=== PATIENT | female | born 2000 | race Caucasian/White ===

== ENCOUNTER 2021-02-21 14:36 | Emergency (ER) | payer OTHER, SELFPAY ==
[2021-02-21 14:58] VITALS: BP 138/65; PULSE 100; RESP 18; TEMP 36.9; O2SAT 98; BMI 34.3
--- NOTE | 2021-02-21 18:06 | ED_ITS ---
HPI - URI/Sore Throat General Chief Complaint: General Medical Stated Complaint: +COVID,SORETHROAT,GENERAL WEAKNESS Time Seen by Provider: 02/21/21 18:02 Source: patient Mode of arrival: ambulatory Limitations: no limitations History of Present Illness MD elicited complaint: cough and sore throat Onset (ago): day(s) (2) Consistency: constant and progressively worsening Severity: moderate Description of mucous: clear and watery Able to tolerate fluids by mouth: Yes Exacerbating factors: swallowing Relieving factors: nothing Context: other (Patient tested positive for COVID 2 days ago) Associated symptoms: chills, myalgias, diaphoresis, headache, rhinorrhea, nasal congestion, sore throat and cough Treatments prior to arrival: none Related Data Previous Rx's Medication Instructions Recorded azithromycin 250 mg tablet See Rx Instructions .ROUTE 02/21/21 .COMPLEX #6 tab codeine 10 mg-guaifenesin 100 mg/5 5 ml PO Q6H PRN #120 ml 02/21/21 mL oral liquid (Guaifenesin AC) cyclobenzaprine 10 mg tablet 10 mg PO Q8H PRN #14 tab 02/21/21 Allergies Allergy/AdvReac Type Severity Reaction Status Date / Time amoxicillin [AMOXICILLIN] Allergy Unknown RASH Unverified 11/24/19 16:59 apple [APPLE] Allergy Unknown THROAT Unverified 11/24/19 16:59 ITCHY Review of Systems Review of Systems: Constitutional : No Weight loss, No Fever, + Chills, No Night Sweats, + Fatigue, + Malaise ENT/Mouth : No Hearing loss, No Ear Pain, + Nasal Congestion, No Sinus Pain, No Hoarseness, + sore throat, + Rhinorrhea, No Swallowing Difficulty Eyes: No Eye Pain, No Swelling, No Redness, No Foreign Body, No Discharge, No Vision Changes Cardiovascular : No Chest Pain, No SOB, No Dyspnea on Exertion, No Orthopnea, No Edema, No Palpitations Respiratory : + Cough, + Sputum, No Wheezing, No Smoke Exposure, No Dyspnea Gastrointestinal : No Nausea, No Vomiting, No Diarrhea, No Constipation, No abdominal Pain, No Hematochezia, No Melena Genitourinary : no irregular bleeding, No Dysuria, No Urinary Frequency, No He maturia, No Urinary Incontinence, No Urgency, No Flank Pain, No Urinary Flow Changes, No Hesitancy Musculoskeletal : No joint pain, + Myalgias, No Joint Swelling Skin : No Skin Lesions, No rash Neuro : No Weakness, No Numbness, No Paresthesias, No Loss of Consciousness, No Dizziness, No Headache Psych : No Anxiety/Panic, No Depression, No SI/HI/AH/VH, No Social Issues, Heme/Lymph: No Bruising, No Bleeding,No Lymphadenopathy Endocrine : No Polyuria, No Polydipsia, No Temperature Intolerance Yes all other systems are reviewed and are negative [facility] Past Medical History Attestation statement: The following information was validated with the patient. Medical History No known health problems Social History Social History Patient : No Physical Exam Vital Signs: Vital Signs: Last Vital Signs Temp 98.5 F 02/21/21 14:58 Pulse 100 02/21/21 14:58 Resp 18 02/21/21 14:58 BP 138/65 02/21/21 14:58 Pulse Ox 98 02/21/21 14:58 BMI result Body Mass Index 34.3 vital signs have been reviewed as normal and appeared to be correct. Blood pressure normal. Heart rate normal. Respiration rate normal. Temperature normal. Oxygen saturation normal. Appearance: Alert. Oriented X3. No acute distress. Head: Normal external exam. Normocephalic. Atraumatic. Eyes: PERRLA. EOMI. Conjunctiva and sclera normal. Eyelids normal. ENT: EAC normal. TM's Normal. Posterior pharynx mildly erythematous and tonsils and large although equal bilaterally and exudate noted. Uvula midline. Moist mucous membranes. No trismus noted. No drooling noted. No muffled voice noted. Neck: Normal inspection. Neck supple. FROM. No adenopathy. Thyroid Normal. No meningeal signs. No neck mass noted. CVS: Normal heart rate and rhythm. Heart sound normal. Pulses normal throughout. No murmurs/rales/gallops. Respiratory: No respiratory distress. Painless inspiration. Breath sounds normal. No wheezes/rales/rhonchi noted. Chest nontender. No accessory muscle usage noted or decreased air movement noted. Abdomen: Soft and nontender. Bowel sounds normal in all 4 quadrants. No distention noted. No organomegaly noted. No visible injury noted. Back: Full range of motion noted. No rashes/lesion/induration/fluctuance or signs of infection noted. Skin: Skin warm and dry. Normal skin color. Normal skin turgor. No rashes/lesions/lacerations noted. Extremities: No lower extremity edema. Extremities exhibit normal range of motion. Extremities nontender. Neuro: Oriented X 3. No motor deficit. No sensory deficit. Reflexes normal. Normal steady gait. No focal neuro deficits noted. Vascular: + radial pulses Normal cap refill. No cyanosis noted to upper extremity nails Course Course Course Narrative: 20-year-old female presenting to the ED with worsening sore throat and cough for the past 2 days after she tested positive for COVID at an outside location. On exam it appears that she has bacterial pharyngitis. I obtain swab although will treat and DC home with instructions to continue to self isolate and to return if any new or worsening symptoms. Patient understands agrees with this plan. MDM - URI/Sore Throat Medical Records Attestation: I reviewed the patient's medical records. Lab Data Attestation: I reviewed the patient's lab results. Discharge Plan Discharge Clinical Impression: Pharyngitis, COVID-19 Patient Disposition: Home, Self-Care Instructions: Pharyngitis (ED), COVID-19 (Coronavirus Disease 2019) (ED) Prescriptions: New cyclobenzaprine 10 mg tablet 10 mg PO Q8H PRN (Reason: Muscle spasm) Qty: 14 RF: 0 codeine-guaifenesin [Guaifenesin AC] 10-100 mg/5 mL liquid 5 ml PO Q6H PRN (Reason: cold symptoms) Qty: 120 RF: 0 azithromycin 250 mg tablet See Rx Instructions .ROUTE .COMPLEX Qty: 6 RF: 0 Referrals: [facility] [Primary Care Provider] - 2 days Print Language: Malawian
[2021-02-21 18:45] LABS: Strep A Nucleic Acid Positive (Negative)
== END 2021-02-21 18:31 | disposition home or self-care (01) ==
LOC: HO.ED 18:24
PROVIDERS: Physician Assistant Medical; Emergency Provider Emergency Medicine
DX: U07.1 COVID-19 (principal); J02.0 Streptococcal pharyngitis
CPT/HCPCS: 36415; 87651; 99283

== ENCOUNTER 2021-02-28 10:38 | Outpatient (REF) | payer OTHER, SELFPAY ==
[2021-02-28 12:49] LABS: COVID-19 Test Positive (Negative)
== END 2021-02-28 10:39 | disposition home or self-care (01) ==
LOC: HO.LAB 10:38
PROVIDERS: Visit Provider Internal Medicine
DX: Z20.822 Contact with and (suspected) exposure to COVID-19 (principal)
CPT/HCPCS: 36415; 87635; C9803

== ENCOUNTER 2021-07-03 15:20 | Emergency (ER) | payer OTHER, SELFPAY ==
[2021-07-03 15:47] VITALS: BP 126/83; PULSE 77; RESP 18; TEMP 36.3; O2SAT 98; BMI 35.2
[2021-07-03 17:50] LABS: MANUAL DIFF FLAG NO
[2021-07-03 17:54] LABS: Basophils Percent Auto 0.2 % (0-2); Eosinophils Percent Auto 0.1 % (0-4); Hematocrit 42.5 % (37.0-47.0); Hemoglobin 13.6 g/dl (12.0-16.0); Imm Gran Abs Auto 0.05 X10*3/uL (0.00-0.03); Imm Gran Pct Auto 0.4 % (0.0-0.4); Lymphocytes Absolute Auto 1.5 X10*3/uL (1.2-4.9); Mean Corpuscular Hemoglobin 25.3 pg (27.0-33.0); Mean Platelet Volume 9.2 fL (9.4-12.3); Monocytes Absolute Auto 0.4 X10*3/uL (0.1-1.2); Monocytes Percent Auto 3.5 % (2-11); Neutrophils Absolute Auto 10.4 x10*3/uL (2.0-8.3); Neutrophils Percent Auto 83.8 % (45-73); Platelet Count 370 X10*3/uL (160-400); Red Blood Count 5.38 X10*6/uL (4.20-5.50); Red Cell Distribution Width 13.2 % (11.0-16.0); White Blood Count 12.4 X10*3/uL (4.8-10.8)
[2021-07-03 18:09] LABS: Anion Gap 13 (12-20); Blood Urea Nitrogen 10 mg/dL (9-16); Calcium 10.2 mg/dL (8.4-10.2); Carbon Dioxide 27 mmol/L (22-29); Chloride 102 mmol/L (96-108); Creatinine Clr Calc Pharmacy 122.7; Estimated Glomerular Filt Rate > 60; Glucose Random 95 mg/dL (60-115); Potassium 4.5 mmol/L (3.3-5.1); Sodium 137 mmol/L (135-145)
== END 2021-07-03 22:10 | disposition left against medical advice (07) ==
LOC: HO.ED 22:07
PROVIDERS: Emergency Provider Emergency Medicine
DX: R10.9 Unspecified abdominal pain (principal)
CPT/HCPCS: 36415; 80048; 85025; 99282; 99283

== ENCOUNTER 2021-07-04 10:46 | Emergency (ER) | payer OTHER, SELFPAY ==
--- NOTE | ~2021-07-04 | CT_ITS ---
EXAMINATION: CT ABDOMEN AND PELVIS WITH CONTRAST CLINICAL INFORMATION: Right lower quadrant and left lower quadrant pain. COMPARISON: None TECHNIQUE: Multidetector volumetric images were obtained from the superior aspect of the liver through the pubic symphysis following administration 85 mL of Omnipaque 350 intravenous contrast. Sagittal and coronal reformatted images were obtained on the technologist's workstation. Oral contrast: No This CT examination was performed using dose optimization techniques as appropriate, variously including the following: *Automated exposure control *Adjustment of mA and/or kV according to patient size (this includes techniques or standardized protocols for targeted exams where dose is matched to indication/reason for exam; i.e. extremities or head) *Use of iterative reconstruction technique DLP: 701 mGy-cm FINDINGS: LUNG BASES: The visualized lung bases are unremarkable. LIVER, GALLBLADDER, AND BILIARY TREE: The liver is normal in size, shape, and attenuation. No focal hepatic lesion or biliary ductal dilatation is present. The gallbladder is unremarkable with no evidence of radiopaque gallstones, gallbladder wall thickening, or obvious pericholecystic inflammatory changes. PANCREAS: Unremarkable. SPLEEN: Unremarkable. ADRENAL GLANDS: Unremarkable. KIDNEYS AND URETERS: The kidneys are normal in size, shape, and attenuation. No hydronephrosis, hydroureter, or calculi seen. No perinephric stranding. BLADDER: Unremarkable. GASTROINTESTINAL TRACT: Normal appendix. No intestinal dilatation or mural thickening. No free intraperitoneal fluid or gas collections. Normal sigmoid mesentery and small bowel mesentery. Normal stomach. ABDOMINAL WALL: No significant hernia is appreciated. LYMPH NODES: Normal. VASCULAR: Unremarkable. PELVIC VISCERA: Normal appearance of the uterus. No suspicious adnexal lesions noted. Possible 1.2 cm rounded low-density cyst within the left ovary which is physiologic in appearance. OSSEOUS STRUCTURES: Incidental bone island within the right sacral alum measuring 5 mm in diameter. Mild multilevel Schmorl's node deformities within the visualized thoracic and lumbar spine. CT/CT abdomen pelvis w con IMPRESSION: IV contrast-enhanced CT of the abdomen and pelvis: *No acute abnormalities. *Normal appendix. No free intraperitoneal fluid or gas collections. No urolithiasis identified. Fleischner guidelines were followed.
[2021-07-04 10:50] VITALS: BP 145/88; PULSE 77; RESP 18; TEMP 37.1; O2SAT 97; BMI 34.7
[2021-07-04 20:58] LABS: Appearance Urine HAZY; Color Urine YELLOW; Glucose Urine UA NEG (NEG); Leukocyte Esterase Urine 2+ (NEG); Nitrite Urine NEG (NEG); Specific Gravity - Urine >= 1.030 (1.005-1.025); UACC Culture Trigger YES; Urine Blood TRACE (NEG); Urine Ketones >=80 MG/DL (NEG); Urine Protein TRACE MG/DL (NEG-TRACE)
[2021-07-04 21:02] LABS: UPreg QC Valid YES; Urine Pregnancy NEGATIVE (NEGATIVE)
[2021-07-04 21:12] LABS: Bacteria Urine 4+ /LPF; Squamous Epithelial Cell Urine 2+ /LPF
[2021-07-04 21:13] LABS: Mucus Urine 3+ /LPF
--- NOTE | 2021-07-04 21:49 | ED.ABDPAIN ---
HPI - Abdominal Pain General Chief Complaint: Abdominal Pain <LAUREN Smith - Last Filed: 07/04/21 23:28> Stated Complaint: vomiting abd pain <LAUREN Smith - Last Filed: 07/04/21 23:28> Time Seen by Provider: 07/04/21 21:02 <LAUREN Smith - Last Filed: 07/04/21 23:28> Source: patient <LAUREN Smith - Last Filed: 07/04/21 23:28> Mode of arrival: ambulatory <LAUREN Smith Last Filed: 07/04/21 23:28> Limitations: no limitations <LAUREN Smith Last Filed: 07/04/21 23:28> History of Present Illness HPI narrative: This is a 21-year-old female with no significant medical history presenting to the emergency department with complaints of nausea, vomiting and abdominal pain x3 days. Patient tells me that she has not been able to keep anything down because she is too nauseous and vomiting, unable to quantify how many times she has vomited. She tells me that she is vomiting bile at this point. She also reports abdominal pain worse in the left and right lower quadrant. Patient tells me that the pain is intermittent in nature, crampy, aching, nonradiating. She also tells me that she has been constipated and has not had a bowel movement for 3 days. She denies any sick contacts. She denies fevers, chills, chest pain, shortness of breath, changes in urination, chances of . <LAUREN Smith - Last Filed: 07/04/21 23:28> MD elicited complaint: abdominal pain <LAUREN Smith Last Filed: 07/04/21 23:28> Pertinent past history: none <LAUREN Smith Last Filed: 07/04/21 23:28> Onset (ago): day(s) (3) <LAUREN Smith Last Filed: 07/04/21 23:28> Pain Consistency: constant <LAUREN Smith Last Filed: 07/04/21 23:28> Location: RLQ and LLQ <LAUREN Smith - Last Filed: 07/04/21 23:28> Severity: moderate <LAUREN Smith - Last Filed: 07/04/21 23:28> Quality: cramping and aching <LAUREN Smith - Last Filed: 07/04/21 23:28> Radiation: none <LAUREN Smith - Last Filed: 07/04/21 23:28> Migration to: no migration <LAUREN Smith - Last Filed: 07/04/21 23:28> Exacerbating factors: eating <LAUREN Smith - Last Filed: 07/04/21 23:28> Relieving factors: nothing <LAUREN Smith - Last Filed: 07/04/21 23:28> Associated symptoms: nausea, vomiting and constipation (X3 days. ) <LAUREN Smith - Last Filed: 07/04/21 23:28> Related Data Home Medications: Previous Rx's Medication Instructions Recorded azithromycin 250 mg tablet See Rx Instructions .ROUTE 02/21/21 .COMPLEX #6 tab codeine 10 mg-guaifenesin 100 mg/5 5 ml PO Q6H PRN #120 ml 02/21/21 mL oral liquid (Guaifenesin AC) cyclobenzaprine 10 mg tablet 10 mg PO Q8H PRN #14 tab 02/21/21 cefuroxime axetil 250 mg tablet 250 mg PO BID 7 Days #14 tab 07/04/21 ondansetron 4 mg disintegrating 4 mg PO ONCE PRN #10 tab 07/04/21 tablet <LAUREN Smith Last Filed: 07/04/21 23:28> Allergies/Adverse Reactions: Allergies Allergy/AdvReac Type Severity Reaction Status Date / Time amoxicillin [AMOXICILLIN] Allergy Unknown RASH Unverified 11/24/19 16:59 apple [APPLE] Allergy Unknown THROAT Unverified 11/24/19 16:59 ITCHY <LAUREN Smith Last Filed: 07/04/21 23:28> Review of Systems Review of Systems Constitutional : No Weight loss, No Fever, No Chills, No Fatigue, No Malaise ENT/Mouth : No sore throat, No Rhinorrhea Eyes: No Eye Pain, No Swelling, No Redness Cardiovascular : No Chest Pain, No SOB, No Dyspnea on Exertion, No Orthopnea, No Edema, No Palpitations Respiratory : No Cough, No Sputum, No Wheezing Gastrointestinal : + Nausea, + Vomiting, No Diarrhea, No Constipation, + abdominal Pain, No Hematochezia, No Melena Genitourinary : No Dysuria, No Urinary Frequency, No Hematuria, Musculoskeletal : No joint pain, No Myalgias, No Joint Swelling Skin : No Skin Lesions, No rash Neuro : No Weakness, No Numbness, No Dizziness, No Headache Psych : No Anxiety/Panic, No Depression All other systems reviewed and are negative <LAUREN Smith - Last Filed: 07/04/21 23:28> Yes all other systems are reviewed and are negative <LAUREN Smith - Last Filed: 07/04/21 23:28> [facility] Past Medical History Attestation statement: The following information was validated with the patient. <LAUREN Smith - Last Filed: 07/04/21 23:28> Source: old records reviewed and nursing notes reviewed <LAUREN Smith - Last Filed: 07/04/21 23:28> Medical History: Medical History No known health problems <LAUREN Smith - Last Filed: 07/04/21 23:28> Social History Social History: Social History Advance Directives: No Advance Directives Information Provided: No Patient : No <LAUREN Smith Last Filed: 07/04/21 23:28> Physical Exam ED Vital Signs: Vital Signs - 24 hr 07/04/21 10:50 07/05/21 00:06 Temperature 98.8 F 98.0 F Pulse Rate 77 97 Respiratory Rate 18 16 Blood Pressure 145/88 H 141/77 H Pulse Oximetry 97 97 BMI result Body Mass Index 34.7 vital signs stable <LAUREN Smith - Last Filed: 07/04/21 23:28> Vital Signs - 24 hr 07/04/21 10:50 07/05/21 00:06 Temperature 98.8 F 98.0 F Pulse Rate 77 97 Respiratory Rate 18 16 Blood Pressure 145/88 H 141/77 H Pulse Oximetry 97 97 BMI result Body Mass Index 34.7 <Derek Jeffers MD - Last Filed: 07/05/21 00:14> Appearance: Alert.? Oriented X3.? No acute distress.? Head: Normocephalic, atraumatic, no step-offs or deformities Eyes: Pupils equal, round and reactive to light.? ENT: Pharynx normal.? Neck: Normal inspection.? Neck supple.? CVS: Normal heart rate and rhythm.? Pulses normal.? Respiratory: No respiratory distress.? Breath sounds normal.? Abdomen: Soft and + tenderness to left and right lower quadrant. Negative psoas and obturator.? Skin: Skin warm and dry.? Normal skin color.? Normal skin turgor.? Extremities: No lower extremity edema.? No calf ttp. 5/5 strength to bilateral upper and lower extremities Back: No midline tenderness, no C-spine tenderness, full range of motion, no CVA tenderness bilaterally Neuro: Oriented X 3.? No motor deficit.? No sensory deficit. CN 2-12 intact <LAUREN Smith - Last Filed: 07/04/21 23:28> Course Reevaluation(s) Reevaluation #1: patient has leukocytosis 16.6. Urine positive for infection. Chemistry pending. CT of the abdomen and pelvis pending. At this time will hold on antibiotics until I receive CT of the abdomen pelvis results. Patient could have leukocytosis secondary to cystitis. Will cover w/ ceftriaxone. <LAUREN Smith - Last Filed: 07/04/21 23:28> Time: 22:47 <LAUREN Smith - Last Filed: 07/04/21 23:28> Reevaluation #2: No acute electrolyte abnormalities requiring intervention. <LAUREN Smith - Last Filed: 07/04/21 23:28> Time: 22:48 <LAUREN Smith - Last Filed: 07/04/21 23:28> Reevaluation #3: Patient vomiting, given zofran and morphine for pain. Sign out to pending improvement, po challenge and ct abd and pelvis. <LAUREN Smith - Last Filed: 07/04/21 23:28> Time: 23:28 <LAUREN Smith - Last Filed: 07/04/21 23:28> 00:14 <Derek Jeffers MD - Last Filed: 07/05/21 00:14> Additional Reevaluation(s): CT scan of the abdomen negative for any acute will discharge patient home on Ceftin <Derek Jeffers MD - Last Filed: 07/05/21 00:14> MDM - Abdominal Pain MDM Narrative Medical decision making narrative: [age] yo f presents w./ lower abd pain, nausea and vomiting X3 days worsening PE significant for pain with palpation to left and right lower quadrant negative psoas and obturator, negative Arellano's. Lungs clear. Regular rate and rhythm. Neuro nonfocal. Vital signs stable. Plan at this time is basic labs, urine, imaging. Based off patient history and physical examination I do not suspect cholecystitis, appendicitis. Will rule out nephrolithiasis, cystitis. Could also be a viral infection. <LAUREN mSith - Last Filed: 07/04/21 23:28> Medical Records Attestation: I reviewed the patient's medical records. <LAUREN Smith - Last Filed: 07/04/21 23:28> Lab Data Attestation: I reviewed the patient's lab results. <LAUREN Smith - Last Filed: 07/04/21 23:28> Result diagrams: : 07/04/21 22:22 07/04/21 22:22 <LAUREN Smith - Last Filed: 07/04/21 23:28> Labs: Lab Results 07/04/21 07/04/21 07/04/21 Range/Units 20:48 20:48 22:22 WBC 16.6 H (4.8-10.8) X10*3/uL RBC 5.34 (4.20-5.50) X10*6/uL Hgb 13.5 (12.0-16.0) g/dl Hct 42.3 (37.0-47.0) % MCV 79.2 L (80.0-98.0) fL MCH 25.3 L (27.0-33.0) pg MCHC 31.9 (31.0-35.0) g/dl RDW 13.2 (11.0-16.0) % Plt Count 349 (160-400) X10*3/uL MPV 9.3 L (9.4-12.3) fL Immature Gran % (Auto) 0.5 H (0.0-0.4) % Neut % (Auto) 79.2 H (45-73) % Lymph % (Auto) 13.9 L (20-40) % [place] % (Auto) 6.0 (2-11) % Eos % (Auto) 0.2 (0-4) % Baso % (Auto) 0.2 (0-2) % Lymph # (Auto) 2.3 (1.2-4.9) X10*3/uL [place] # (Auto) 1.0 (0.1-1.2) X10*3/uL Eos # (Auto) 0.0 (0.0-0.4) X10*3/uL Baso # (Auto) 0.0 (0.0-0.2) X10*3/uL Abs Immat Gran (auto) 0.09 H (0.00-0.03) X10*3/uL Absolute Neuts (auto) 13.2 H (2.0-8.3) x10*3/uL Absolute Nucleated RBC 0.000 (0.0-0.012) X10*3/uL Nucleated RBC % (auto) 0.0 (0.0-0.2) /100WBC Sodium (135-145) mmol/L Potassium (3.3-5.1) mmol/L Chloride (96-108) mmol/L Carbon Dioxide (22-29) mmol/L Anion Gap (12-20) BUN (9-16) mg/dL Creatinine (0.5-1.4) mg/dL Estim Creat Clear Calc Estimated GFR Random Glucose (60-115) mg/dL Calcium (8.4-10.2) mg/dL Magnesium (1.6-2.6) mg/dL Total Bilirubin (0.0-1.0) mg/dL AST (5-31) U/L ALT (0-31) U/L Alkaline Phosphatase (39-117) U/L Total Protein (6.5-8.0) g/dL Albumin (3.5-5.0) g/dL Lipase (8-78) U/L Urine Color YELLOW Urine Appearance HAZY Urine pH 6.0 (5.0-8.0) Ur Specific [place] >= 1.030 H (1.005-1.025) Urine Protein TRACE (NEG-TRACE) MG/DL Urine Glucose (UA) NEG (NEG) MG/DL Urine Ketones >=80 (NEG) MG/DL Urine Blood TRACE (NEG) Urine Nitrite NEG (NEG) Ur Leukocyte Esterase 2+ H (NEG) Urine RBC 1-4 (0) /HPF Urine WBC 15-29 H (0-4) /HPF Ur Squamous Epith Cells 2+ /LPF Urine Bacteria 4+ /LPF Urine Mucus 3+ /LPF Urine Test NEGATIVE (NEGATIVE) 07/04/21 Range/Units 22:22 WBC (4.8-10.8) X10*3/uL RBC (4.20-5.50) X10*6/uL Hgb (12.0-16.0) g/dl Hct (37.0-47.0) % MCV (80.0-98.0) fL MCH (27.0-33.0) pg MCHC (31.0-35.0) g/dl RDW (11.0-16.0) % Plt Count (160-400) X10*3/uL MPV (9.4-12.3) fL Immature Gran % (Auto) (0.0-0.4) % Neut % (Auto) (45-73) % Lymph % (Auto) (20-40) % [place] % (Auto) (2-11) % Eos % (Auto) (0-4) % Baso % (Auto) (0-2) % Lymph # (Auto) (1.2-4.9) X10*3/uL [place] # (Auto) (0.1-1.2) X10*3/uL Eos # (Auto) (0.0-0.4) X10*3/uL Baso # (Auto) (0.0-0.2) X10*3/uL Abs Immat Gran (auto) (0.00-0.03) X10*3/uL Absolute Neuts (auto) (2.0-8.3) x10*3/uL Absolute Nucleated RBC (0.0-0.012) X10*3/uL Nucleated RBC % (auto) (0.0-0.2) /100WBC Sodium 136 (135-145) mmol/L Potassium 4.6 (3.3-5.1) mmol/L Chloride 101 (96-108) mmol/L Carbon Dioxide 23 (22-29) mmol/L Anion Gap 17 (12-20) BUN 9 (9-16) mg/dL Creatinine 0.74 (0.5-1.4) mg/dL Estim Creat Clear Calc 123.5 Estimated GFR > 60 Random Glucose 79 (60-115) mg/dL Calcium 10.2 (8.4-10.2) mg/dL Magnesium 1.8 (1.6-2.6) mg/dL Total Bilirubin 0.4 (0.0-1.0) mg/dL AST 19 (5-31) U/L ALT 20 (0-31) U/L Alkaline Phosphatase 110 (39-117) U/L Total Protein 8.9 H (6.5-8.0) g/dL Albumin 4.1 (3.5-5.0) g/dL Lipase 9 (8-78) U/L Urine Color Urine Appearance Urine pH (5.0-8.0) Ur Specific [place] (1.005-1.025) Urine Protein (NEG-TRACE) MG/DL Urine Glucose (UA) (NEG) MG/DL Urine Ketones (NEG) MG/DL Urine Blood (NEG) Urine Nitrite (NEG) Ur Leukocyte Esterase (NEG) Urine RBC (0) /HPF Urine WBC (0-4) /HPF Ur Squamous Epith Cells /LPF Urine Bacteria /LPF Urine Mucus /LPF Urine Test (NEGATIVE) <LAUREN Smith - Last Filed: 07/04/21 23:28> Lab Results 07/04/21 07/04/21 07/04/21 Range/Units 20:48 20:48 22:22 WBC 16.6 H (4.8-10.8) X10*3/uL RBC 5.34 (4.20-5.50) X10*6/uL Hgb 13.5 (12.0-16.0) g/dl Hct 42.3 (37.0-47.0) % MCV 79.2 L (80.0-98.0) fL MCH 25.3 L (27.0-33.0) pg MCHC 31.9 (31.0-35.0) g/dl RDW 13.2 (11.0-16.0) % Plt Count 349 (160-400) X10*3/uL MPV 9.3 L (9.4-12.3) fL Immature Gran % (Auto) 0.5 H (0.0-0.4) % Neut % (Auto) 79.2 H (45-73) % Lymph % (Auto) 13.9 L (20-40) % [place] % (Auto) 6.0 (2-11) % Eos % (Auto) 0.2 (0-4) % Baso % (Auto) 0.2 (0-2) % Lymph # (Auto) 2.3 (1.2-4.9) X10*3/uL [place] # (Auto) 1.0 (0.1-1.2) X10*3/uL Eos # (Auto) 0.0 (0.0-0.4) X10*3/uL Baso # (Auto) 0.0 (0.0-0.2) X10*3/uL Abs Immat Gran (auto) 0.09 H (0.00-0.03) X10*3/uL Absolute Neuts (auto) 13.2 H (2.0-8.3) x10*3/uL Absolute Nucleated RBC 0.000 (0.0-0.012) X10*3/uL Nucleated RBC % (auto) 0.0 (0.0-0.2) /100WBC Sodium (135-145) mmol/L Potassium (3.3-5.1) mmol/L Chloride (96-108) mmol/L Carbon Dioxide (22-29) mmol/L Anion Gap (12-20) BUN (9-16) mg/dL Creatinine (0.5-1.4) mg/dL Estim Creat Clear Calc Estimated GFR Random Glucose (60-115) mg/dL Calcium (8.4-10.2) mg/dL Magnesium (1.6-2.6) mg/dL Total Bilirubin (0.0-1.0) mg/dL AST (5-31) U/L ALT (0-31) U/L Alkaline Phosphatase (39-117) U/L Total Protein (6.5-8.0) g/dL Albumin (3.5-5.0) g/dL Lipase (8-78) U/L Urine Color YELLOW Urine Appearance HAZY Urine pH 6.0 (5.0-8.0) Ur Specific [place] >= 1.030 H (1.005-1.025) Urine Protein TRACE (NEG-TRACE) MG/DL Urine Glucose (UA) NEG (NEG) MG/DL Urine Ketones >=80 (NEG) MG/DL Urine Blood TRACE (NEG) Urine Nitrite NEG (NEG) Ur Leukocyte Esterase 2+ H (NEG) Urine RBC 1-4 (0) /HPF Urine WBC 15-29 H (0-4) /HPF Ur Squamous Epith Cells 2+ /LPF Urine Bacteria 4+ /LPF Urine Mucus 3+ /LPF Urine Test NEGATIVE (NEGATIVE) 07/04/21 Range/Units 22:22 WBC (4.8-10.8) X10*3/uL RBC (4.20-5.50) X10*6/uL Hgb (12.0-16.0) g/dl Hct (37.0-47.0) % MCV (80.0-98.0) fL MCH (27.0-33.0) pg MCHC (31.0-35.0) g/dl RDW (11.0-16.0) % Plt Count (160-400) X10*3/uL MPV (9.4-12.3) fL Immature Gran % (Auto) (0.0-0.4) % Neut % (Auto) (45-73) % Lymph % (Auto) (20-40) % [place] % (Auto) (2-11) % Eos % (Auto) (0-4) % Baso % (Auto) (0-2) % Lymph # (Auto) (1.2-4.9) X10*3/uL [place] # (Auto) (0.1-1.2) X10*3/uL Eos # (Auto) (0.0-0.4) X10*3/uL Baso # (Auto) (0.0-0.2) X10*3/uL Abs Immat Gran (auto) (0.00-0.03) X10*3/uL Absolute Neuts (auto) (2.0-8.3) x10*3/uL Absolute Nucleated RBC (0.0-0.012) X10*3/uL Nucleated RBC % (auto) (0.0-0.2) /100WBC Sodium 136 (135-145) mmol/L Potassium 4.6 (3.3-5.1) mmol/L Chloride 101 (96-108) mmol/L Carbon Dioxide 23 (22-29) mmol/L Anion Gap 17 (12-20) BUN 9 (9-16) mg/dL Creatinine 0.74 (0.5-1.4) mg/dL Estim Creat Clear Calc 123.5 Estimated GFR > 60 Random Glucose 79 (60-115) mg/dL Calcium 10.2 (8.4-10.2) mg/dL Magnesium 1.8 (1.6-2.6) mg/dL Total Bilirubin 0.4 (0.0-1.0) mg/dL AST 19 (5-31) U/L ALT 20 (0-31) U/L Alkaline Phosphatase 110 (39-117) U/L Total Protein 8.9 H (6.5-8.0) g/dL Albumin 4.1 (3.5-5.0) g/dL Lipase 9 (8-78) U/L Urine Color Urine Appearance Urine pH (5.0-8.0) Ur Specific [place] (1.005-1.025) Urine Protein (NEG-TRACE) MG/DL Urine Glucose (UA) (NEG) MG/DL Urine Ketones (NEG) MG/DL Urine Blood (NEG) Urine Nitrite (NEG) Ur Leukocyte Esterase (NEG) Urine RBC (0) /HPF Urine WBC (0-4) /HPF Ur Squamous Epith Cells /LPF Urine Bacteria /LPF Urine Mucus /LPF Urine Test (NEGATIVE) <Derek Jeffers MD - Last Filed: 07/05/21 00:14> Critical Care Time Critical Care Time Critical Care Time: No <LAUREN Smith - Last Filed: 07/04/21 23:28> Discharge Plan Discharge Clinical Impression: UTI (urinary tract infection), Abdominal pain <LAUREN Smith - Last Filed: 07/04/21 23:28> Patient Disposition: Still a Patient <LAUREN Smith - Last Filed: 07/04/21 23:28> Instructions: Urinary Tract Infection in Women (DC) <LAUREN Smith - Last Filed: 07/04/21 23:28> Additional Instructions: Take your medications as prescribed. If you were prescribed antibiotics today, it is important that you take your medication to their entirety, do not skip any doses, do not finish them early. Follow-up with your primary care provider this week. Return to the emergency department with new or worsening symptoms. Such as fevers, chills, chest pain, shortness of breath, nausea, vomiting, dizziness, headache, vision changes, lethargy In case of emergency call 911 <LAUREN Smith - Last Filed: 07/04/21 23:28> Prescriptions: New cefuroxime axetil 250 mg tablet 250 mg PO BID 7 Days Qty: 14 0RF ondansetron 4 mg tablet,disintegrating 4 mg PO ONCE PRN (Reason: nausea and vomiting) Qty: 10 0RF No Action cyclobenzaprine 10 mg tablet 10 mg PO Q8H PRN (Reason: Muscle spasm) Qty: 14 0RF codeine-guaifenesin [Guaifenesin AC] 10-100 mg/5 mL liquid 5 ml PO Q6H PRN (Reason: cold symptoms) Qty: 120 0RF azithromycin 250 mg tablet See Rx Instructions .ROUTE .COMPLEX Qty: 6 0RF Rx Instructions: take 500 mg today (day 1), then 250 mg for 4 days (days 2-5) <LAUREN Smith Last Filed: 07/04/21 23:28> Referrals: Physician,None [Primary Care Provider] - <LAUREN Smith - Last Filed: 07/04/21 23:28> Stand Alone Forms: Work/School Release <LAUREN Smith - Last Filed: 07/04/21 23:28>
[2021-07-04 22:27] LABS: MANUAL DIFF FLAG NO
[2021-07-04] MEDS: 0.9 % Sodium Chloride 1,000 ML 999 ML IV (22:27)
[2021-07-04 22:29] LABS: Basophils Percent Auto 0.2 % (0-2); Eosinophils Percent Auto 0.2 % (0-4); Hematocrit 42.3 % (37.0-47.0); Hemoglobin 13.5 g/dl (12.0-16.0); Imm Gran Abs Auto 0.09 X10*3/uL (0.00-0.03); Imm Gran Pct Auto 0.5 % (0.0-0.4); Lymphocytes Absolute Auto 2.3 X10*3/uL (1.2-4.9); Lymphocytes Percent Auto 13.9 % (20-40); Mean Corpuscular HGB Conc 31.9 g/dl (31.0-35.0); Mean Corpuscular Hemoglobin 25.3 pg (27.0-33.0); Mean Corpuscular Volume 79.2 fL (80.0-98.0); Mean Platelet Volume 9.3 fL (9.4-12.3); Neutrophils Absolute Auto 13.2 x10*3/uL (2.0-8.3); Neutrophils Percent Auto 79.2 % (45-73); Platelet Count 349 X10*3/uL (160-400); Red Blood Count 5.34 X10*6/uL (4.20-5.50); Red Cell Distribution Width 13.2 % (11.0-16.0); White Blood Count 16.6 X10*3/uL (4.8-10.8)
[2021-07-04 22:47] LABS: Alanine Aminotransferase 20 U/L (0-31); Albumin Level 4.1 g/dL (3.5-5.0); Alkaline Phosphatase 110 U/L (39-117); Anion Gap 17 (12-20); Aspartate Amino Transferase 19 U/L (5-31); Bilirubin Total 0.4 mg/dL (0.0-1.0); Blood Urea Nitrogen 9 mg/dL (9-16); Calcium 10.2 mg/dL (8.4-10.2); Carbon Dioxide 23 mmol/L (22-29); Chloride 101 mmol/L (96-108); Creatinine Clr Calc Pharmacy 123.5; Estimated Glomerular Filt Rate > 60; Glucose Random 79 mg/dL (60-115); Lipase 9 U/L (8-78); Magnesium 1.8 mg/dL (1.6-2.6); Potassium 4.6 mmol/L (3.3-5.1); Sodium 136 mmol/L (135-145); Total Protein 8.9 g/dL (6.5-8.0)
[2021-07-04] MEDS: iohexoL 350 MG/ML 100 ML INFUS..BTL 85 ML IV (23:23)
[2021-07-04] MEDS: ondansetron HCL 4 MG/2 ML VIAL IVPUSH (23:33)
[2021-07-04] MEDS: Morphine Sulfate 4 MG/ML CARTRIDGE IVPUSH (23:37)
[2021-07-04] MEDS: cefTRIAXone sodium 1 GM in 0.9 % Sodium Chloride 50 ML IV (23:37)
[2021-07-05 00:06] VITALS: BP 141/77; PULSE 97; RESP 16; TEMP 36.7; O2SAT 97
[2021-07-05] MEDS: Ketorolac Tromethamine 30 MG/ML VIAL IVPUSH (01:04)
[2021-07-05] MEDS: 0.9 % Sodium Chloride 1,000 ML 999 ML IV (01:05)
[2021-07-05 01:06] VITALS: BP 130/70; PULSE 85; RESP 15; O2SAT 98
[2021-07-05 01:12] LABS: COVID-19 Test Negative (Negative); IDNOW Serial# 55D5AD1C; Influenza A Negative (Negative); Influenza B2 Negative (Negative)
== END 2021-07-05 01:43 | disposition home or self-care (01) ==
PROVIDERS: Physician Assistant; Emergency Provider Internal Medicine
DX: N39.0 Urinary tract infection, site not specified (principal); R10.30 Lower abdominal pain, unspecified; Z20.822 Contact with and (suspected) exposure to COVID-19
CPT/HCPCS: 36415; 74177; 80053; 81001; 81025; 83690; 83735; 85025; 87086; 87502; 87635; 96361; 96365; 96375; 99284; 99285; J0696; J1885; J2270; J2405; Q9967

== ENCOUNTER 2022-03-30 22:03 | Emergency (ER) | payer MEDICAID, SELFPAY ==
[2022-03-30 22:10] VITALS: BP 136/70; PULSE 96; RESP 16; TEMP 36.8; O2SAT 95; BMI 34.7
[2022-03-30 22:32] LABS: MANUAL DIFF FLAG NO
[2022-03-30 22:33] LABS: Basophils Percent Auto 0.2 % (0-2); Eosinophils Absolute Auto 0.1 X10*3/uL (0.0-0.4); Eosinophils Percent Auto 0.9 % (0-4); Hemoglobin 14.3 g/dl (12.0-16.0); Imm Gran Abs Auto 0.06 X10*3/uL (0.00-0.03); Imm Gran Pct Auto 0.4 % (0.0-0.4); Lymphocytes Absolute Auto 1.2 X10*3/uL (1.2-4.9); Lymphocytes Percent Auto 7.8 % (20-40); Mean Corpuscular HGB Conc 32.5 g/dl (31.0-35.0); Mean Corpuscular Volume 79.9 fL (80.0-98.0); Mean Platelet Volume 9.4 fL (9.4-12.3); Monocytes Absolute Auto 0.7 X10*3/uL (0.1-1.2); Monocytes Percent Auto 4.9 % (2-11); Neutrophils Absolute Auto 12.6 x10*3/uL (2.0-8.3); Neutrophils Percent Auto 85.8 % (45-73); Platelet Count 326 X10*3/uL (160-400); Red Blood Count 5.51 X10*6/uL (4.20-5.50); Red Cell Distribution Width 14.1 % (11.0-16.0); White Blood Count 14.7 X10*3/uL (4.8-10.8)
[2022-03-30 22:51] LABS: Alanine Aminotransferase 22 U/L (0-31); Albumin Level 4.2 g/dL (3.5-5.0); Alkaline Phosphatase 103 U/L (39-117); Anion Gap 13 (12-20); Aspartate Amino Transferase 17 U/L (5-31); Bilirubin Total 0.3 mg/dL (0.0-1.0); Blood Urea Nitrogen 14 mg/dL (9-16); Calcium 9.7 mg/dL (8.4-10.2); Carbon Dioxide 26 mmol/L (22-29); Chloride 105 mmol/L (96-108); Creatinine Clr Calc Pharmacy 118.7; Estimated Glomerular Filt Rate > 60; Glucose Random 109 mg/dL (60-115); Potassium 4.1 mmol/L (3.3-5.1); Sodium 140 mmol/L (135-145); Total Protein 8.6 g/dL (6.5-8.0)
[2022-03-30 22:53] LABS: UPreg QC Valid YES; Urine Pregnancy NEGATIVE (NEGATIVE)
--- NOTE | 2022-03-30 23:34 | ED.NAVMDI ---
HPI - Nausea/Vomiting/Diarrhea General Chief complaint: Nausea/Vomiting/Diarrhea Stated complaint: ??? Time Seen by Provider: 03/30/22 23:20 Source: patient and family ([place]) Mode of arrival: ambulatory Limitations: no limitations History of Present Illness HPI Narrative: 21-year-old female who presents emergency department for evaluation of sudden onset of nausea, vomiting and diarrhea. The patient states that she has had 3 episodes of vomiting today and 1 episode of diarrhea. These episodes started suddenly around 17:00 hours. She has not noticed any blood in the emesis or diarrhea. She states she started her menstrual period 5 days prior and has been using tampons. She states she changes a tampon every 4-5 hours and she does not think that she has retained tampon. She was concerned that she may have toxic shock syndrome because she was using tampons. The patient denied fever but states she was having chills. She states that yesterday she developed rhinorrhea and a cough. She denies sore throat, shortness of breath, dyspnea on exertion. The patient did travel to [facility] the in [place] 2 weeks prior and states she was not ill while she was traveling. She did state that she went amount [facility]. The patient's grandmother is a ECONOMIC DEVELOPMENT MANAGER and the patient was exposed to 1 of the grandmother is patient's who was diagnosed with COVID-19 over the weekend. The patient is not vaccinated against COVID-19. She states that she is having lower abdominal pain which is consistent with her menstrual cramps. She has not noticed a rash on her body. Related Data Previous Rx's Medication Instructions Recorded azithromycin 250 mg tablet See Rx Instructions PO .COMPLEX #6 02/21/21 tabs codeine 10 mg-guaifenesin 100 mg/5 5 ml PO Q6H PRN cold symptoms #120 02/21/21 mL oral liquid (Guaifenesin AC) mL cyclobenzaprine 10 mg tablet 10 mg PO Q8H PRN Muscle spasm #14 02/21/21 tabs cefuroxime axetil 250 mg tablet 250 mg PO BID 7 days #14 tabs 07/04/21 ondansetron 4 mg disintegrating 4 mg PO ONCE PRN nausea and 07/04/21 tablet vomiting #10 tabs ondansetron 4 mg disintegrating 4 mg PO Q6-8H PRN nausea and 03/31/22 tablet vomiting #14 tabs Allergies Allergy/AdvReac Type Severity Reaction Status Date / Time amoxicillin [AMOXICILLIN] Allergy Unknown RASH Unverified 11/24/19 16:59 apple [APPLE] Allergy Unknown THROAT Unverified 11/24/19 16:59 ITCHY Review of Systems Review of Systems: Yes all other systems are reviewed and are negative [facility] Past Medical History [facility] Narrative: Past medical history: None. Past surgical history: None. Social history: She denies tobacco use. She denies drug use. She occasionally drinks alcohol. Medical History No known health problems Social History Social History Alcohol intake: current Alcohol intake frequency: holidays/special occasions only Alcohol type: hard liquor Smoked in Last 30 Days: No Use of substances other than those prescribed or required for medical reasons: Yes Substance Use Type: Marijuana Substance Use Frequency: Occasionally Advance Directives: No Advance Directives Information Provided: No Physical Exam Vital Signs: Vital Signs: Last Vital Signs Temp 98.7 F 03/31/22 01:54 Pulse 79 03/31/22 01:54 Resp 16 03/31/22 01:54 BP 123/67 03/31/22 01:54 Pulse Ox 96 03/31/22 01:54 O2 Del Method 03/31/22 01:54 BMI result Body Mass Index 34.7 Const: General: cooperative and no acute distress Orientation/consciousness: oriented to person and oriented to place Limitations: no limitations HEENT: Head: Yes normal to inspection, Yes normocephalic and Yes atraumatic Ears: external ears normal General nose exam: Normal external nose present Face and sinus: Yes normal facial exam Mouth: Normal oral and palatal mucosa present Throat: Yes posterior oropharynx normal Eyes: General: appearance normal, both eyes and all related structures Neck: Neck: Yes normal visual inspection, Yes no lymphadenopathy, Yes trachea midline and Yes supple Chest: Chest palpation & inspection: normal inspection of the chest and normal palpation of entire chest wall Resp: Effort & Inspection: normal respiratory effort and able to speak in complete sentences Auscultation: clear to auscultation bilaterally Cardio: Rate: regular rate Rhythm: regular rhythm Heart sounds: S1 normal heart sound present, S2 normal heart sound present and no murmurs GI: Inspection: Yes normal to inspection Palpation (GI): Soft to palpation, Tenderness to palpation present (GI) suprapubicly (Moderate) and no guarding Auscultation: normal bowel sounds : General: Yes no CVA tenderness Back/Spine/Pelvis: Back: no CVA tenderness Skin: General skin exam: no rashes or lesions noted Neuro: General: oriented to person and oriented to place Cognition (Neuro): normal cognition Extrem: General: Yes normal to inspection Psych: Appearance: grossly normal Speech and movement: Normal speech and movement present Affect: normal affect Attitude: cooperative Medications Administered Discontinued Medications Generic Name Dose Route Start Last Admin Trade Name Freq PRN Reason Stop Dose Admin Sodium Chloride 1,000 mls @ 999 mls/hr 03/30/22 23:34 03/30/22 23:55 Ns IV 03/31/22 00:34 999 mls/hr .Q1H1M STA Administration Ketorolac Tromethamine 15 mg 03/30/22 23:34 03/30/22 23:54 Ketorolac Tromethamine 15 Mg/Ml Vial IVPUSH 03/30/22 23:35 15 mg ONCE STA Administration Ondansetron HCl 4 mg 03/30/22 23:34 03/30/22 23:54 Ondansetron Hcl 4 Mg/2 Ml Vial IVPUSH 03/30/22 23:35 4 mg ONCE ONE Administration Medical Decision Making Medical Decision Making [facility] Narrative: 21-year-old female who presents emergency department for evaluation of sudden onset at around 17:00 hours of nausea, vomiting, diarrhea. Patient has been sick for approximately 2 days with chills, nonproductive cough and rhinorrhea. The patient did have an exposure to COVID-19 several days prior, she is not vaccinated against COVID-19. She did travel to [place] in [place] and did spend some time in the [facility] this areas of [place] but was not sick while she was there. She has not been on antibiotics recently. She has been menstruating for approximately 5 days and has been using tampons, she is not aware of any retained tampons and she states she has been changing her tampon every 4-6 hours. At this time I suspect the patient has an acute viral illness I do not think that she has toxic shock syndrome. Laboratory evaluation including CBC, CMP and urine test were ordered at triage. After my evaluation I ordered normal saline x1 L, Zofran 4 mg IV for her nausea and vomit and Toradol 15 mg IV for her abdominal pain. 0209: The patient is feeling significantly better after the above treatment. Patient most likely has a viral syndrome. She was advised to take Tylenol ibuprofen for pain and fever. She was prescribe Zofran ODT 4 mg every 8 hours as needed for nausea and vomiting. She was given printed and verbal instructions and discharged home. Differential Diagnosis Differential diagnosis includes but is not limited to acute viral syndrome, COVID-19, RSV, influenza, C difficile colitis, toxic shock syndrome Lab Data MDM Lab Attestation statement: I reviewed the patient's lab results. My independent interpretation of his laboratory evaluation as follows, elevated WBC [id number] left shift with 85 neutrophils, CMP was unremarkable. test was negative. COVID-19, influenza and RSV tests were negative. 03/30/22 22:28 03/30/22 20:28 Labs: Lab Results 03/30/22 03/30/22 03/30/22 Range/Units 20:28 22:28 22:46 WBC 14.7 H (4.8-10.8) X10*3/uL RBC 5.51 H (4.20-5.50) X10*6/uL Hgb 14.3 (12.0-16.0) g/dl Hct 44.0 (37.0-47.0) % MCV 79.9 L (80.0-98.0) fL MCH 26.0 L (27.0-33.0) pg MCHC 32.5 (31.0-35.0) g/dl RDW 14.1 (11.0-16.0) % Plt Count 326 (160-400) X10*3/uL MPV 9.4 (9.4-12.3) fL Immature Gran % (Auto) 0.4 (0.0-0.4) % Neut % (Auto) 85.8 H (45-73) % Lymph % (Auto) 7.8 L (20-40) % [place] % (Auto) 4.9 (2-11) % Eos % (Auto) 0.9 (0-4) % Baso % (Auto) 0.2 (0-2) % Lymph # (Auto) 1.2 (1.2-4.9) X10*3/uL [place] # (Auto) 0.7 (0.1-1.2) X10*3/uL Eos # (Auto) 0.1 (0.0-0.4) X10*3/uL Baso # (Auto) 0.0 (0.0-0.2) X10*3/uL Abs Immat Gran (auto) 0.06 H (0.00-0.03) X10*3/uL Absolute Neuts (auto) 12.6 H (2.0-8.3) x10*3/uL Absolute Nucleated RBC 0.000 (0.0-0.012) X10*3/uL Nucleated RBC % (auto) 0.0 (0.0-0.2) /100WBC Sodium 140 (135-145) mmol/L Potassium 4.1 (3.3-5.1) mmol/L Chloride 105 (96-108) mmol/L Carbon Dioxide 26 (22-29) mmol/L Anion Gap 13 (12-20) BUN 14 (9-16) mg/dL Creatinine 0.77 (0.5-1.4) mg/dL Estim Creat Clear Calc 118.7 Estimated GFR > 60 Random Glucose 109 (60-115) mg/dL Calcium 9.7 (8.4-10.2) mg/dL Total Bilirubin 0.3 (0.0-1.0) mg/dL AST 17 (5-31) U/L ALT 22 (0-31) U/L Alkaline Phosphatase 103 (39-117) U/L Total Protein 8.6 H (6.5-8.0) g/dL Albumin 4.2 (3.5-5.0) g/dL Urine Test NEGATIVE (NEGATIVE) Influenza Type A (PCR) (Negative) Influenza Type B (PCR) (Negative) RSV RNA Qual (PCR) (Negative) SARS-CoV-2 RNA (RT-PCR) (Negative) 03/31/22 Range/Units 01:08 WBC (4.8-10.8) X10*3/uL RBC (4.20-5.50) X10*6/uL Hgb (12.0-16.0) g/dl Hct (37.0-47.0) % MCV (80.0-98.0) fL MCH (27.0-33.0) pg MCHC (31.0-35.0) g/dl RDW (11.0-16.0) % Plt Count (160-400) X10*3/uL MPV (9.4-12.3) fL Immature Gran % (Auto) (0.0-0.4) % Neut % (Auto) (45-73) % Lymph % (Auto) (20-40) % [place] % (Auto) (2-11) % Eos % (Auto) (0-4) % Baso % (Auto) (0-2) % Lymph # (Auto) (1.2-4.9) X10*3/uL [place] # (Auto) (0.1-1.2) X10*3/uL Eos # (Auto) (0.0-0.4) X10*3/uL Baso # (Auto) (0.0-0.2) X10*3/uL Abs Immat Gran (auto) (0.00-0.03) X10*3/uL Absolute Neuts (auto) (2.0-8.3) x10*3/uL Absolute Nucleated RBC (0.0-0.012) X10*3/uL Nucleated RBC % (auto) (0.0-0.2) /100WBC Sodium (135-145) mmol/L Potassium (3.3-5.1) mmol/L Chloride (96-108) mmol/L Carbon Dioxide (22-29) mmol/L Anion Gap (12-20) BUN (9-16) mg/dL Creatinine (0.5-1.4) mg/dL Estim Creat Clear Calc Estimated GFR Random Glucose (60-115) mg/dL Calcium (8.4-10.2) mg/dL Total Bilirubin (0.0-1.0) mg/dL AST (5-31) U/L ALT (0-31) U/L Alkaline Phosphatase (39-117) U/L Total Protein (6.5-8.0) g/dL Albumin (3.5-5.0) g/dL Urine Test (NEGATIVE) Influenza Type A (PCR) NEGATIVE (Negative) Influenza Type B (PCR) NEGATIVE (Negative) RSV RNA Qual (PCR) NEGATIVE (Negative) SARS-CoV-2 RNA (RT-PCR) NEGATIVE (Negative) Independent Historian Clinical information obtained from an independent historian. History obtained from or confirmed by: Parent Discharge Plan Discharge Clinical Impression: Viral syndrome Vomiting Qualifiers: Nausea presence: with nausea Diarrhea Qualifiers: Diarrhea type: unspecified type Qualified Code(s): R19.7 - Diarrhea, unspecified Patient Disposition: Home, Self-Care Instructions: Viral Syndrome (ED) Additional Instructions: Your blood work was [place] [address], this is consistent with an infection. Your COVID-19, RSV and influenza tests were negative. This is reassuring but there are many viruses that we cannot test for that can cause flu like symptoms. The treatment is to treat your symptoms and your body will eventually fight off the virus. Take Zofran ODT 4 mg pills, 1 pill dissolved in your mouth every 8 hours as needed for nausea and vomiting. Take ibuprofen 200 mg pills, 2 pills every 6 hours as needed for pain or fever Take Tylenol (acetaminophen) 500 mg pills, 2 pills every 4 to 6 hours as needed for pain or fever. Follow-up with your doctor in 2 days. Please return to the emergency department if your symptoms get worse or if you develop any symptoms that are concerning to you. Prescriptions: New ondansetron 4 mg tablet,disintegrating 4 mg PO Q6-8H PRN (Reason: nausea and vomiting) Qty: 14 0RF No Action cyclobenzaprine 10 mg tablet 10 mg PO Q8H PRN (Reason: Muscle spasm) Qty: 14 0RF codeine-guaifenesin [Guaifenesin AC] 10-100 mg/5 mL liquid 5 ml PO Q6H PRN (Reason: cold symptoms) Qty: 120 0RF azithromycin 250 mg tablet See Rx Instructions .ROUTE .COMPLEX Qty: 6 0RF Rx Instructions: take 500 mg today (day 1), then 250 mg for 4 days (days 2-5) cefuroxime axetil 250 mg tablet 250 mg PO BID 7 Days Qty: 14 0RF ondansetron 4 mg tablet,disintegrating 4 mg PO ONCE PRN (Reason: nausea and vomiting) Qty: 10 0RF
[2022-03-30] MEDS: ondansetron HCL 4 MG/2 ML VIAL IVPUSH (23:54)
[2022-03-30] MEDS: Ketorolac Tromethamine 15 MG/ML VIAL IVPUSH (23:54)
[2022-03-30] MEDS: 0.9 % Sodium Chloride 1,000 ML 999 ML IV (23:55)
[2022-03-31 01:52] LABS: Influenza A PCR NEGATIVE (Negative); Influenza B PCR NEGATIVE (Negative); Resp Syncy Virus RNA Qual PCR NEGATIVE (Negative); SARS COV2 PCR INHOUSE NEGATIVE (Negative)
[2022-03-31 01:54] VITALS: BP 123/67; PULSE 79; RESP 16; TEMP 37.1; O2SAT 96
== END 2022-03-31 02:36 | disposition home or self-care (01) ==
PROVIDERS: Emergency Provider Emergency Medicine Emergency Medical Services
DX: B34.9 Viral infection, unspecified (principal); R11.2 Nausea with vomiting, unspecified; R19.7 Diarrhea, unspecified; Z20.822 Contact with and (suspected) exposure to COVID-19; Z20.828 Contact with and (suspected) exposure to other viral communicable diseases; Z79.899 Other long term (current) drug therapy
CPT/HCPCS: 0241U; 36415; 80053; 81025; 85025; 96361; 96374; 96375; 99284; J1885; J2405